=== PATIENT | male | born 1975 | race American Indian/Alaskan Native ===

== ENCOUNTER 2019-12-16 19:42 | Emergency (ER) | payer OTHER ==
--- NOTE | 2019-12-16 20:28 | XRay Report ---
CHEST 1 VIEW INDICATION / CLINICAL INFORMATION: Chest Pain. COMPARISON: None available. FINDINGS: SUPPORT DEVICES: None. HEART / MEDIASTINUM: No significant abnormality. LUNGS / PLEURA: No significant pulmonary or pleural abnormality. No pneumothorax. ADDITIONAL FINDINGS: No significant additional findings. IMPRESSION: No acute cardiopulmonary abnormality. Signer Name: Niko Fernandez MD Signed: 12/16/2019 8:24 PM Workstation Name: [id number]
[2019-12-16 20:46] LABS: Basophils # (Auto) 0.1 K/mm3 (0.0-0.1); Basophils % (Auto) 0.9 % (0.0-1.8); Eosinophils # (Auto) 0.2 K/mm3 (0.0-0.4); Eosinophils % (Auto) 3.1 % (0.0-4.3); Hematocrit 40.5 % (35.5-45.6); Hemoglobin 13.8 gm/dl (11.8-15.2); Lymphocytes # (Auto) 3.2 K/mm3 (1.2-5.4); Lymphocytes % (Auto) 42.1 % (13.4-35.0); Mean Corpuscular HGB Conc 34 % (32-34); Mean Corpuscular Volume 77 fl (84-94); Monocytes # (Auto) 0.7 K/mm3 (0.0-0.8); Monocytes % (Auto) 9.6 % (0.0-7.3); Platelet Count 286 K/mm3 (140-440); Red Blood Count 5.28 M/mm3 (3.65-5.03); Red Cell Distribution Width 15.5 % (13.2-15.2)
[2019-12-16 21:02] LABS: BUN/Creatinine Ratio 12; Blood Urea Nitrogen 12 mg/dL (9-20); Calcium 9.3 mg/dL (8.4-10.2); Hemolysis Index 7
[2019-12-16 21:37] VITALS: BP 163/94
[2019-12-17] MEDS ORDERED: ASPIRIN 325 MG TAB PO ONE (00:44)
--- NOTE | 2019-12-17 00:46 | Emergency Department Report ---
ED General Adult HPI - General Chief complaint: Dyspnea/Respdistress Stated complaint: SOB LEFT ARM TINGLING Source: patient Mode of arrival: Ambulatory Limitations: No Limitations - History of Present Illness Initial comments: Patient is a 44-year-old -[place]ones[place] male with a history of asthma who presents to the ED with complaint of acute onset persistent left arm tingling sensation persistently for 2 hours [address] home. Patient states that the tingling sensation radiated to the posterior upper thoracic area and left-sided chest wall. Patient states that the tingling sensation was only relieved whenever he flexed his left arm behind his head while driving. Patient states that at that time she also felt short of breath and decided come to the ED for evaluation. Patient denies dizziness, syncope, chest pain, abdominal pain, nausea, vomiting, diaphoresis, bilateral upper extremity weakness, fever, chills, cough, traumatic injury or heavy lifting, headache or neck pain. MD Complaint: left arm tingling, left-sided chest pain -: Sudden (4) Location: upper extremity (LEFT ARM) Radiation: extremity (Left upper extremity diffusely) Quality: aching, dull Consistency: constant Improves with: other (Flexion of left arm) Worsens with: none Associated Symptoms: denies other symptoms, shortness of breath. denies: confusion, chest pain, cough, diaphoresis, fever/chills, headaches, loss of appetite, malaise, nausea/vomiting, seizure, syncope, weakness, other Treatments Prior to Arrival: none - Related Data Previous Rx's Medication Instructions Recorded Last Taken Type Gabapentin 300 mg PO QHS PRN #30 cap 12/17/19 Unknown Rx Naproxen 500 mg PO Q12H PRN #24 tablet 12/17/19 Unknown Rx predniSONE [Deltasone] 40 mg PO QDAY #10 tab 12/17/19 Unknown Rx Allergies Allergy/AdvReac Type Severity Reaction Status Date / Time No Known Allergies Allergy Unverified 12/16/19 19:59 ED Review of Systems ROS: Stated complaint: SOB LEFT ARM TINGLING Other details as noted in HPI Constitutional: denies: chills, fever Eyes: denies: eye pain, eye discharge, vision change ENT: denies: ear pain, throat pain Respiratory: shortness of breath. denies: cough, wheezing Cardiovascular: chest pain (left-sided). denies: palpitations, dyspnea on exertion Endocrine: no symptoms reported Gastrointestinal: denies: abdominal pain, nausea, vomiting, diarrhea Genitourinary: denies: urgency, dysuria Musculoskeletal: arthralgia (left shoulder pain), other (left arm tingling). denies: back pain, joint swelling Skin: denies: rash, lesions Neurological: denies: headache, weakness, paresthesias Psychiatric: anxiety. denies: depression Hematological/Lymphatic: denies: easy bleeding, easy bruising ED Past Medical Hx - Past Medical History Previous Medical History?: Yes Hx Asthma: Yes - Surgical History Past Surgical History?: Yes Additional Surgical History: Arm - Social History Smoking Status: Former Smoker Substance Use Type: None - Medications Home Medications: Home Medications Medication Instructions Recorded Confirmed Last Taken Type Gabapentin 300 mg PO QHS PRN #30 cap 12/17/19 Unknown Rx Naproxen 500 mg PO Q12H PRN #24 tablet 12/17/19 Unknown Rx predniSONE [Deltasone] 40 mg PO QDAY #10 tab 12/17/19 Unknown Rx ED Physical Exam - General Limitations: No Limitations General appearance: alert, in no apparent distress - Head Head exam: Present: atraumatic, normocephalic, normal inspection - Eye Eye exam: Present: normal appearance, PERRL, EOMI Pupils: Present: normal accommodation - ENT ENT exam: Present: normal exam, normal orophraynx, mucous membranes moist, TM's normal bilaterally, normal external ear exam - Neck Neck exam: Present: normal inspection, full ROM - Respiratory Respiratory exam: Present: normal lung sounds bilaterally. Absent: respiratory distress, wheezes, rales, rhonchi, chest wall tenderness, accessory muscle use, decreased breath sounds, prolonged expiratory - Cardiovascular Cardiovascular Exam: Present: regular rate, normal rhythm, normal heart sounds. Absent: systolic murmur, diastolic murmur, rubs, gallop - GI/Abdominal GI/Abdominal exam: Present: soft, normal bowel sounds. Absent: tenderness, guarding, rebound, hyperactive bowel sounds, hypoactive bowel sounds, organomegaly - Extremities Exam Extremities exam: Present: normal inspection, full ROM, normal capillary refill - Back Exam Back exam: Present: normal inspection, full ROM. Absent: tenderness, CVA te nderness (R), CVA tenderness (L), muscle spasm, paraspinal tenderness, vertebral tenderness - Neurological Exam Neurological exam: Present: alert, oriented X3, CN II-XII intact, normal gait, reflexes normal - Psychiatric Psychiatric exam: Present: normal affect, normal mood - Skin Skin exam: Present: warm, dry, intact, normal color. Absent: rash ED Course Vital Signs 12/16/19 19:59 Temperature 98.6 F Pulse Rate 99 H Respiratory 16 Rate Blood Pressure 163/94 O2 Sat by Pulse 94 Oximetry ED Medical Decision Making - Lab Data Result diagrams: 12/16/19 20:17 12/16/19 20:17 - EKG Data EKG shows normal: sinus rhythm Rate: normal - EKG Data Interpretation: normal EKG 12/17/19 03:37 The EKG shows normal sinus rhythm with ventricular rate of [address] or T wave abnormalities - Radiology Data Radiology results: report reviewed, image reviewed Findings [facility] [address] [place] [address] XRay Report Signed Patient: LUIS CARLOS SUAREZ MR#: [id number] : 1975 Acct:[id number] Age/Sex: 44 / M ADM Date: 12/16/19 Loc: ED Attending Dr: Ordering Physician: ED MD CLAUDIA Date of Service: 12/16/19 Procedure(s): XR chest 1V ap Accession Number(s): [id number] cc: ED MD CLAUDIA Fluoro Time In Minutes: CHEST 1 VIEW INDICATION / CLINICAL INFORMATION: Chest Pain. COMPARISON: None available. FINDINGS: SUPPORT DEVICES: None. HEART / MEDIASTINUM: No significant abnormality. LUNGS / PLEURA: No significant pulmonary or pleural abnormality. No pneumothorax. ADDITIONAL FINDINGS: No significant additional findings. IMPRESSION: No acute cardiopulmonary abnormality. Signer Name: Digna Fernandez MD Signed: 12/16/2019 8:24 PM Workstation Name: [id number] Transcribed By: SS Dictated By: DIGNA FERNANDEZ Electronically Authenticated By: DIGNA FERNANDEZ Signed Date/Time: 12/16/192023 DD/ 22 TD/TT: - Medical Decision Making This is a 44-year-old -Gabonese male with a history of asthma who presents to the ED with complaint of acute onset persistent left arm tingling sensation persistently for 2 hours [address] home. Patient states that the tingling sensation radiated to the posterior upper thoracic area and left-sided chest wall. Patient states that the tingling sensation was only relieved whenever he flexed his left arm behind his head while driving. Patient states that at that time she also felt short of breath and decided come to the ED for evaluation. In the ED, patient is alert and oriented x3 and is not in distress. Patient was treated in the ED with aspirin. Lab test results were reviewed and are all nonactionable including initial and repeat troponin levels as well as d-dimer levels. Chest x-ray shows no acute cardiopulmonary abnormalities or pneumonitis. EKG shows normal sinus rhythm with a ventricular rate of [address] or T wave abnormalities. Patient has no cardiac risk factors and his heart score is 0. On reevaluation, patient felt better, all his symptoms resolved. Patient was discharged home on medications and advised to follow-up with his primary care physician in 5 to 7 days for reevaluation. Patient was advised return to the ED immediately if symptoms get worse. - Differential Diagnosis Cervical radiculopathy; Muscle strain; paresthesia; anxiety; CAD; PE Critical care attestation.: If time is entered above; I have spent that time in minutes in the direct care of this critically ill patient, excluding procedure time. ED Disposition Clinical Impression: Cervical radiculopathy, Paresthesia of left upper extremity, Shortness of breath, Acute nonspecific chest pain with low risk of coronary artery disease, Anxiety as acute reaction to exceptional stress Disposition: DC-01 TO HOME OR SELFCARE Is pt being admited?: No Does the pt Need Aspirin: No Condition: Stable Instructions: Chest Pain (ED), Cervical Radiculopathy (ED), Generalized Anxiety Disorder (ED) Additional Instructions: All lab test results are reviewed and are all nonactionable normal. Chest x-ray shows no acute cardiopulmonary abnormalities or pneumonitis. EKG shows normal sinus rhythm. Your symptoms are due to cervical radiculopathy which is an impingement of nerves on your neck that control your left arm causing tingling and numbness in your left arm. Therefore take medications with food, drink plenty fluids and follow-up with your primary care physician in 3 to 5 days for reevaluation. Return to the ED immediately if symptoms get worse. Prescriptions: Gabapentin 300 mg PO QHS PRN #30 cap PRN Reason: Paresthesia predniSONE [Deltasone] 40 mg PO QDAY #10 tab Naproxen 500 mg PO Q12H PRN #24 tablet PRN Reason: Pain , Severe (7-10) Referrals: [facility] [Provider Group] - 3-5 Days Forms: Work/School Release Form(ED) Time of Disposition: 02:34 Print Language: ARABIC
[2019-12-17] MEDS: FAMOTIDINE 20 MG TAB PO ONE ×2 (00:57→00:59)
== END 2019-12-17 02:45 | disposition home or self-care (01) ==
LOC: ED 19:42
DX: M54.12 Radiculopathy, cervical region (principal); R06.02 Shortness of breath; R20.2 Paresthesia of skin; R07.89 Other chest pain; F41.1 Generalized anxiety disorder; F43.0 Acute stress reaction; J45.909 Unspecified asthma, uncomplicated; Z98.890 Other specified postprocedural states; Z87.891 Personal history of nicotine dependence; Z79.899 Other long term (current) drug therapy
CPT/HCPCS: 36415; 71045; 80048; 84484; 85025; 85379; 93005